=== PATIENT | female | born 1955 | race Caucasian/White ===

== ENCOUNTER 2017-10-25 12:04 | Emergency (ER) | payer BC, OTHER ==
[~2017-10-25] VITALS: Ht 152.4 cm; Wt 52.0 kg
[2017-10-25] MEDS ORDERED: SODIUM CHLORIDE 0.9% 1,000 ML IV ONE (12:37)
[2017-10-25] MEDS ORDERED: MORPHINE SULFATE 4 MG/ML, 1ML ONE (12:58)
[2017-10-25] MEDS ORDERED: SODIUM CHLORIDE FLUSH 10ML SYR IVF ONE (13:00)
[2017-10-25] MEDS ORDERED: PLEASE ENTER ALLERGIES MC SCH (13:00)
[2017-10-25] MEDS ORDERED: SODIUM CHLORIDE 0.9% 1,000ML IVBOLUS ONE (13:00)
[2017-10-25] MEDS ORDERED: MORPHINE SULFATE 4 MG/ML, 1ML IVPush PRN (13:00)
[2017-10-25 13:06] LABS: MICROSCOPIC INDICATED
[2017-10-25 13:07] LABS: BASOPHILS # (AUTO) 0.06 x10^3/uL (0-0.1); BASOPHILS % (AUTO) 0 % (0-1); EOSINOPHILS # (AUTO) 0.27 x10^3/uL (0-0.4); EOSINOPHILS % (AUTO) 2 % (1-7); LYMPHOCYTES # (AUTO) 1.72 x10^3/uL (1-3.4); LYMPHOCYTES % (AUTO) 12 % (22-44); MD NO; MEAN CORPUSCULAR HEMOGLOBIN 30.2 pg (27.0-34.8); MEAN CORPUSCULAR HGB CONC 33.7 g/dL (32.4-35.8); MEAN CORPUSCULAR VOLUME 89.7 fL (80-100); MEAN PLATELET VOLUME 8.3 fL (7.4-10.4); MONOCYTES # (AUTO) 0.51 x10^3/uL (0.2-0.8); MONOCYTES % (AUTO) 4 % (2-9); NEUTROPHILS % (AUTO) 83 % (42-75); PLATELET COUNT 252 x10^3/uL (130-400); RED BLOOD COUNT 5.08 x10^6/uL (3.82-5.3); RED CELL DISTRIBUTION WIDTH 13.3 % (9.6-15.2)
[2017-10-25 13:15] LABS: ALBUMIN 3.8 g/dL (3.4-5.0); ANION GAP 5 mmol/L (5-15); CALCIUM 9.2 mg/dL (8.5-10.1); CHLORIDE 106 mmol/L (98-107)
[2017-10-25 13:18] LABS: ALANINE AMINOTRANSFERASE 47 U/L (12-78); ALKALINE PHOSPHATASE 91 U/L (45-117); BILIRUBIN,TOTAL 1.3 mg/dL (0.2-1.0); CREATININE 0.69 mg/dL (0.55-1.02); TOTAL PROTEIN 7.4 g/dL (6.4-8.2)
[2017-10-25 13:19] LABS: CULTURE INDICATED? NO
[2017-10-25] MEDS ORDERED: ONDANSETRON 2MG/ML, 2ML IVPush ONE (13:30)
[2017-10-25] MEDS ORDERED: OMNIPAQUE 350 MG/ML, 100ML BOTTLE ONE (14:02)
[2017-10-25 14:57] VITALS: BP 122/100
== END 2017-10-25 15:08 | disposition home or self-care (01) ==
LOC: ED 14:06
DX: R10.11 Right upper quadrant pain (principal)
CPT/HCPCS: 36415; 74177; 80053; 81001; 85025; 96361; 96374; 96375; 99285; J2405; J7030; Q9967

== ENCOUNTER → 2017-12-20 | Outpatient (CLI) | payer BC | LOC: CFH 16:14 | DX: K80.20 Calculus of gallbladder without cholecystitis without obstruction (principal); K76.0 Fatty (change of) liver, not elsewhere classified | CPT/HCPCS: 76700 ==

== ENCOUNTER 2017-12-24 11:25 | Day surgery (SDC) | payer BC ==
[~2017-12-24] VITALS: Ht 152.4 cm; Wt 50.3 kg
[~2017-12-24 11:25] MED LIST: CIPRO PO; NONE PER PT
[2017-12-24] MEDS ORDERED: LACTATED RINGERS 1,000 ML IV SCH (11:50)
[2017-12-24 11:54] VITALS: BP 133/74
[2017-12-24] MEDS ORDERED: INDOCYANINE GREEN 25 MG VIAL IV ONE (12:00)
[2017-12-24] MEDS ORDERED: INDOCYANINE GREEN 25 MG VIAL ONE (12:28)
[2017-12-24] MEDS ORDERED: DEXAMETHASONE 4 MG/ML, 1ML ONE ×2 (12:53)
[2017-12-24] MEDS ORDERED: PROPOFOL 10 MG/ML, 20ML ONE (12:53)
[2017-12-24] MEDS ORDERED: LIDOCAINE-MPF 2% ,5ML ONE (12:53)
[2017-12-24] MEDS ORDERED: ROCURONIUM 10MG/ML,5ML ONE (12:53)
[2017-12-24] MEDS ORDERED: CEFOTETAN 1 GM ONE (12:54)
[2017-12-24] MEDS ORDERED: ONDANSETRON 2MG/ML, 2ML ONE (12:54)
[2017-12-24] MEDS ORDERED: FENTANYL PF 100 MCG/2ML ONE ×2 (13:22→14:04)
[2017-12-24] MEDS ORDERED: NEOSTIGMINE 1 MG/ML, 10ML ONE (13:37)
[2017-12-24] MEDS ORDERED: GLYCOPYRROLATE 0.2MG/1ML, 5ML ONE (13:38)
[2017-12-24] MEDS ORDERED: morphine SULFATE 10 MG/ML, 1ML IV PRN (14:00)
[2017-12-24] MEDS ORDERED: FENTANYL PF 100 MCG/2ML IV PRN (14:00)
[2017-12-24] MEDS ORDERED: HYDROcodone/APAP 7.5-325MG/15ML UDC PO PRN (14:00)
[2017-12-24] MEDS ORDERED: MEPERIDINE/PF 25MG/0.5ML IVPush PRN (14:00)
[2017-12-24] MEDS ORDERED: ACETAMINOPHEN 325 MG TABLET PO PRN (14:00)
[2017-12-24] MEDS ORDERED: ONDANSETRON 2MG/ML, 2ML IVPush PRN (14:00)
[2017-12-24] MEDS ORDERED: OXYcodone 5 MG/5 ML ORAL.SOL UDC ONE (14:04)
[2017-12-24] MEDS ORDERED: ACETAMINOPHEN 650 MG/20.3 ML UDC ONE (14:04)
[2017-12-24] MEDS: OXYcodone 5 MG/5 ML ORAL.SOL UDC PO PRN ×2 (14:08→16:41)
[2017-12-24] MEDS ORDERED: OXYcodone IR 5MG TABLET ONE (16:39)
== END 2017-12-24 15:10 ==
LOC: OUT 11:25
PROVIDERS: ATTEND Surgery
DX: K80.00 Calculus of gallbladder with acute cholecystitis without obstruction (principal)
CPT/HCPCS: 47562; 88304; 93005; J1100; J2405; J2704; J2710; J3010; J3490; J7120; S2900; S0074